=== PATIENT | male | born 1975 | race Caucasian/White ===

== ENCOUNTER → 2017-01-07 | Outpatient (CLI) | payer OTHER ==
[~2017-01-07] MED LIST: NONE PER PT; OXYC-302 PO
== END | disposition home or self-care (01) ==
LOC: STAR 13:24
PROVIDERS: ATTEND Surgery
DX: Z02.9 Encounter for administrative examinations, unspecified (principal)

== ENCOUNTER 2017-01-13 15:22 | Day surgery (SDC) | payer OTHER ==
[~2017-01-13] VITALS: Ht 182.9 cm; Wt 108.2 kg
[~2017-01-13 15:22] MED LIST changes: +BUPIVACAINE/PF 0.5% ONE; -OXYC-302 PO
[2017-01-13] MEDS ORDERED: FENTANYL PF 100 MCG/2ML ONE ×3 (15:30→17:06)
[2017-01-13] MEDS ORDERED: MIDAZOLAM 1 MG/ML, 2ML ONE (15:30)
[2017-01-13] MEDS ORDERED: LIDOCAINE 1%, 2ML ONE (15:36)
[2017-01-13 15:39] VITALS: BP 142/87
[2017-01-13] MEDS ORDERED: LACTATED RINGERS 1,000 ML IV SCH ×2 (15:41→19:00)
[2017-01-13] MEDS ORDERED: LIDOCAINE 1%, 2ML SQ PRN (16:00)
[2017-01-13] MEDS ORDERED: PROPOFOL 10 MG/ML, 20ML ONE (16:12)
[2017-01-13] MEDS ORDERED: SUCCINYLCHOLINE 20 MG/ML, 10ML ONE (16:12)
[2017-01-13] MEDS ORDERED: ROCURONIUM 10 MG/ML ONE ×2 (16:12)
[2017-01-13] MEDS ORDERED: CEFAZOLIN 1,000 MG ONE (16:12)
[2017-01-13] MEDS ORDERED: ONDANSETRON 2MG/ML, 2ML ONE (16:12)
[2017-01-13] MEDS ORDERED: NEOSTIGMINE 1 MG/ML, 10ML ONE (16:12)
[2017-01-13] MEDS ORDERED: GLYCOPYRROLATE 0.2MG/1ML ONE (16:12)
[2017-01-13] MEDS ORDERED: BUPIVACAINE/PF-EPI 0.5% 1:200K IM ONE (16:30)
[2017-01-13] MEDS ORDERED: OXYcodone 5 MG/5 ML ORAL.SOL UDC ONE (17:07)
[2017-01-13] MEDS ORDERED: ACETAMINOPHEN 650 MG/20.3 ML UDC ONE (17:07)
[2017-01-13] MEDS ORDERED: PROMETHAZINE 25 MG/ML, 1ML IV PRN (17:30)
[2017-01-13] MEDS ORDERED: HYDROmorphone 1 MG/ML, 1ML IV PRN (17:30)
[2017-01-13] MEDS ORDERED: ONDANSETRON 2MG/ML, 2ML IVPush PRN ×2 (17:30→19:00)
[2017-01-13] MEDS ORDERED: ACETAMINOPHEN 325 MG TABLET PO PRN (17:30)
[2017-01-13] MEDS ORDERED: OXYcodone 5 MG/5 ML ORAL.SOL UDC PO PRN (17:30)
[2017-01-13] MEDS ORDERED: hydrALAzine 20 MG/ML, 1ML IV PRN (17:30)
[2017-01-13] MEDS ORDERED: MEPERIDINE/PF 25MG/0.5ML IVPush PRN (17:30)
[2017-01-13] MEDS ORDERED: LABETALOL 5MG/ML, 20ML IV PRN (17:30)
[2017-01-13] MEDS ORDERED: FENTANYL PF 100 MCG/2ML IV PRN (17:30)
[2017-01-13] MEDS ORDERED: MORPHINE SULFATE 4 MG/ML, 1ML IVPush PRN (19:00)
[2017-01-13] MEDS ORDERED: OXYcodone/APAP 5/325MG TABLET PO PRN (19:00)
[2017-01-13] MEDS ORDERED: OXYC-302 PO (20:05)
== END 2017-01-13 21:00 | disposition home or self-care (01) ==
LOC: OR 15:22 → 4NOR 18:09 → OR 21:00
PROVIDERS: ATTEND Surgery
DX: K42.9 Umbilical hernia without obstruction or gangrene (principal); Z88.1 Allergy status to other antibiotic agents; Z87.891 Personal history of nicotine dependence; Z72.89 Other problems related to lifestyle
CPT/HCPCS: 49585; J0330; J0690; J2250; J2405; J2704; J2710; J3010; J3490; J7120

== ENCOUNTER → 2017-01-28 | Outpatient (CLI) | payer OTHER ==
[~2017-01-28] MED LIST changes: -BUPIVACAINE/PF 0.5% ONE; +OXYC-302 PO
== END | disposition home or self-care (01) ==
LOC: RAD 10:57
PROVIDERS: ATTEND Family Medicine
DX: R10.9 Unspecified abdominal pain (principal); M54.9 Dorsalgia, unspecified
CPT/HCPCS: 76770